=== PATIENT | male | born 1935 | race African-American/Black ===

== ENCOUNTER 2020-07-08 | Observation (INO) | payer MEDICARE ==
[2020-07-08 16:28] VITALS: BP 138/71
--- NOTE | 2020-07-08 16:55 | NUR ---
PER LELO, NURSING STAFF ASKED TO OBTAIN MED LIST JESSIKA, PHARMACY WILL VERIFY ORDERS ONCE MED LIST OBTAINED/ENTERED
--- NOTE | 2020-07-08 17:00 | NUR ---
PT ARRIVED TO THE FLOOR VIA STREACHER AND TRANSPORT. AXOX3, DENIES PAIN. TELE PLACED ON THE PT. INTO BED WITH ASST OF TWO. ORIENTED TO THE ROOM THE BED , CALL LIGHT TV AND TELEPHONE. VS 138/71 86PL 97.4 TEMP AND 95% ON RA. TELE IS READING A-FIB WITH PVC,S IN THE 90,S. ASSESSMENT COMPLETE. FALL BAND AND ALLERGIE BAND APPLIED. REPOSITIONED FOR COMFORT, SIDE RAILS UP CALL LIGHT IN REACH, BED LOCKED IN LOW POSITION. ALL SAFTY MEASURES IN PLACE. WILL CONTINUE TO MONIOTR THE PATIENT.
[2020-07-08] MEDS ORDERED: AMARYL1 M1 PO (17:01)
[2020-07-08] MEDS ORDERED: METFORMIN500 M2 PO (17:02)
[2020-07-08] MEDS ORDERED: ISOSORB MONO60 M1 PO (17:03)
[2020-07-08] MEDS ORDERED: PRADAXA150 M1 PO (17:04)
[2020-07-08] MEDS ORDERED: METOPROL TAR25 MG PO (17:05)
[2020-07-08] MEDS ORDERED: HYDROCHLOROT12.5 MG PO (17:06)
[2020-07-08] MEDS ORDERED: COZAAR100 MG PO (17:07)
[2020-07-08] MEDS ORDERED: SIMVASTATIN40 MG PO (17:07)
[2020-07-08] MEDS ORDERED: NITROSTAT0.4 MG SL (17:08)
[2020-07-08] MEDS ORDERED: [UNRECOGNIZED DRUG - OTHER] OU (17:09)
[2020-07-08] MEDS ORDERED: ACETYL SALICYLIC ACI PO (17:12)
[2020-07-08] MEDS ORDERED: FOLIC ACI1 PO (17:12)
[2020-07-08] MEDS ORDERED: VITAMIN B PO (17:13)
[2020-07-08] MEDS ORDERED: PROSCAR5 MG PO (17:14)
[2020-07-08] MEDS ORDERED: MULTIVITAMI9 PO (17:14)
[2020-07-08] MEDS ORDERED: BETIMOL0.5 % OU (17:15)
[2020-07-08] MEDS ORDERED: FISH OIL1000 M2 PO (17:16)
[2020-07-08] MEDS ORDERED: PEG 3350 PO (17:17)
[2020-07-08 18:40] VITALS: BP 119/77
--- NOTE | 2020-07-08 18:45 | NUR ---
PT VOIDING CLEAR YELLOW URINE .
--- NOTE | 2020-07-08 20:03 | NUR ---
PHYSICAL ASSESMENT COMPLETE. PT CURRENTLY DENIES PAIN OR DISCOMFORT. SCHEDULED MEDICATIONS AND PRN MEDICATION ADMINISTERED, SEE E-MAR. PT DENIES ANY NEEDS AT THIS TIME. PLAN OF CARE REVIEWED, PT DENIES QUESTIONS, VERBALIZES UNDERSTANDING. ITEMS WITHIN REACH, BED LOCKED IN LOW POSITION W/ BEDRAILS UP X2. CALL HOLLOWAY WITHIN REACH, AGREES TO CALL PRN.
--- NOTE | 2020-07-09 00:03 | NUR ---
PT LAYING IN BED WITH EYES CLOSED, APPEARS TO BE SLEEPING, APPEARS COMFORTABLE AND IN NO DISTRESS. RESPIRATIONS REGULAR AND UNLABORED. ITEMS REMAIN WITHIN REACH, CALL HOLLOWAY REMAINS WITHIN REACH. BED REMAINS LOCKED AND IN LOW POSITION WITH BEDRAILS UP X2. WILL CONTINUE TO MONITOR.
[2020-07-09 00:08] VITALS: BP 124/82
[2020-07-09 04:16] VITALS: BP 116/71
--- NOTE | 2020-07-09 04:16 | NUR ---
PT RESTING IN BED, NO SIGNS OF DISTRESS NOTED, RESP EVEN AND UNLABORED. PT VOICES NO NEEDS OR COMPLAINTS AT THIS TIME. CALL LIGHT IN REACH, CONTINUE TO MONITOR.
[2020-07-09 06:18] LABS: HEMATOCRIT 38.2 % (39.0-50.0); HEMOGLOBIN 11.6 g/dl (14.0-18.0); IMMATURE GRANULOCYTES 0.2 % (0.0-5.0); MEAN CELL VOLUME 76.9 fL CALC (80.0-100.0); MEAN CORPUSCULAR HGB 23.3 pG CALC (26.0-32.0); MEAN CORPUSCULAR HGB CONC 30.4 g/dL CAL (32.0-36.0); NEUT# 3.59 thou/uL (1.82-7.42); RED BLOOD COUNT 4.97 mill/uL (4.70-6.10); RED CELL DISTRI WIDTH 18.9 % (11.5-15.5)
[2020-07-09 07:02] LABS: ALKALINE PHOSPHATASE 71 u/l (38-126); ANION GAP 12 (6-22 (CALC)); BILIRUBIN, TOTAL 0.6 mg/dL (0.0-1.4); BUN 13 mg/dL (8-23); BUN/CREATININE RATIO 13 (12-20 (CALC)); CALCULATED LDLCHOLESTEROL 43 mg/dL (62-129 (CALC)); CARBON DIOXIDE 27 mmol/l (22-30); CHLORIDE 103 mmol/l (95-108); CHOLESTEROL HDL RATIO 2.1 (<4.4 (CALC)); GFR > 60 ML/MIN (>=60 (CALC)); GFR FOR AFR.AMER. > 60 ML/MIN (>=60 (CALC)); HDL CHOLESTEROL 55 mg/dL (>=40); MAGNESIUM 1.9 mg/dL (1.6-2.3); POTASSIUM 4.2 mmol/l (3.5-5.1); SGOT/AST 81 u/l (19-48); SODIUM 138 mmol/l (137-146); TOTAL CHOLESTEROL 116 mg/dl (0-199); TOTAL PROTEIN 7.3 g/dL (6.3-8.2); TOTAL TRIGLYCERIDES 88 mg/dl (30-149); VLDL CHOLESTROL 18 mg/dl (0-38 (CALC))
--- NOTE | 2020-07-09 07:15 | NUR ---
PATIENT LAYING IN BED AT THIS TIME MILITARY LAWYER DONE SEE INTERVENTIONS. PATIENT STATED THAT HE HAS NOT HAS A BOWEL MOVEMENT AND ASKED FOR SOMETHING. LELO UPTON APRN NOTIFIED AND ORDERS GIVEN. PATIENT DENEIS ANY PAIN OR OTHER NEEDS. PATIENTS LUNG ARAUJO CLEAR AT THIS TIME. TELE ON AND BEING MONITORED BY ED. SIDERAILS ARE UP X 2 CALL LIGHT WITHIN REACH.
[2020-07-09 07:35] VITALS: BP 121/77
--- NOTE | 2020-07-09 10:29 | NUR ---
PT WOULD BENEFIT FROM PT EVALUATION IF MEDICAL AGREES.
[2020-07-09 10:59] VITALS: BP 104/60
--- NOTE | 2020-07-09 11:53 | NUR ---
PATIENT SITTING UP IN BED AT THIS TIME. PATIENT DENEIS ANY NEEDS AT THIS TIME. PATIENT SIDERAILS ARE UP X 2 CALL LIGHT AND PERSONAL ITEMS WITHIN REACH.
[2020-07-09 15:00] VITALS: BP 88/50
--- NOTE | 2020-07-09 16:01 | NUR ---
PATIENT RESTING IN BED AT THIS TIME. PATIENT DENIES ANY NEEDS SIDERAILS ARE UP CALL LIGHT WITHIN REACH AT THIS TIME.
[2020-07-09 19:18] VITALS: BP 106/65
[2020-07-10] VITALS (7 sets, daily range): BP systolic 91–122; BP diastolic 56–75
--- NOTE | 2020-07-10 00:44 | NUR ---
LATE ENTRY FOR 07/09/20 @ 1999 PT DOING WELL AT THIS TIME. HE DENIES PAIN. NO COMPLAINTS VOICED. IV SITE REMAINS TO R WRIST, FLUSHES EASILY. BREATHING IS EVEN AND UNLABORED. DENIES CHEST PAIN. BS 114 AT HS, NO COVERAGE INDICATED. WILL MONITOR.
--- NOTE | 2020-07-10 00:46 | NUR ---
PT RESTING QUIETLY AT THIS TIME. NO COMPLAINTS VOICED. BED IN LOWEST POSITION AND CALL LIGHT WITHIN REACH. WILL MONITOR
--- NOTE | 2020-07-10 04:23 | NUR ---
PT RESTING COMFORTABLY AT THIS TIME. NO COMPLAINTS VOICED. NO REPORTS OF PAIN. BREATHING EVEN AND UNLABORED. DENIERS CHEST PAIN AT THIS TIME. WILL MONITOR
[2020-07-10 06:10] LABS: HEMATOCRIT 41.7 % (39.0-50.0); HEMOGLOBIN 12.3 g/dl (14.0-18.0); MEAN CELL VOLUME 76.7 fL CALC (80.0-100.0); MEAN CORPUSCULAR HGB 22.6 pG CALC (26.0-32.0); MEAN CORPUSCULAR HGB CONC 29.5 g/dL CAL (32.0-36.0); RED BLOOD COUNT 5.44 mill/uL (4.70-6.10); RED CELL DISTRI WIDTH 19.2 % (11.5-15.5)
[2020-07-10 06:34] LABS: ANION GAP 15 (6-22 (CALC)); BUN 14 mg/dL (8-23); BUN/CREATININE RATIO 14 (12-20 (CALC)); CARBON DIOXIDE 25 mmol/l (22-30); CHLORIDE 99 mmol/l (95-108); GFR > 60 ML/MIN (>=60 (CALC)); GFR FOR AFR.AMER. > 60 ML/MIN (>=60 (CALC)); MAGNESIUM 1.9 mg/dL (1.6-2.3); POTASSIUM 3.9 mmol/l (3.5-5.1); SODIUM 136 mmol/l (137-146)
--- NOTE | 2020-07-10 07:48 | NUR ---
PATIENT RESTING IN BED AT THIS TIME MULE TENDER DONE SEE INTERVENTIONS. PATIENT DENIES ANY PAIN AT THIS TIME OR NEEDS. LUNG ARAUJO REMAIN CLEAR IN ALL FOUR FIELD. CALL LIGHT AND PERSONAL ITEMS ARE WITHIN REACH SIDERAILS ARE UP X2 AT THIS TIME
--- NOTE | 2020-07-10 09:05 | NUR ---
PATIENT COMPLAINING OF PAIN IN THE CHEST AT THIS TIME AND STATED THAT HE GOT "INTO HIS PANTS AND TOOK TWO 0.4MG OF SUBLINGUAL NITRO PRIOR TO THIS NURSE COMING INTO THE ROOM. VITAL SIGNS TAKE AT THIS TIME TEMP. 96.7 PULSE 105 RESP. 23 BP 97/57. DR. FUENTES WAS NOTIFIED OF PATIENTS ACTION AND CAME INTO THE ROOM AND ORDERS OBTAIN FOR EKG AND TO HOLD PATIENTS IMDUR AND LASARTAN AT THIS TIME FOR THE 0900 DOSE. PATIENT STATES "I MY HEAD HURTS A LITTLE". PATIENT TELE MONITORED READING IS PACED [address] FUENTES AWARE OF PATIENTS STATUS. PATIENT EDUCATED ON HOW TO USE NITRO SUBLINGUAL CORRECTLY AT THIS TIME. PATIENTS OWN NITRO REMOVED FROM ROOM AND SENT TO PHARMACY.
--- NOTE | 2020-07-10 14:00 | NUR ---
PATIENT RESTING IN BED AT THIS TIME. PATIENT DENIES ANY NEEDS OR PAIN. SIDERAILS ARE UP CALL LIGHT IS WITHIN REACH.
--- NOTE | 2020-07-10 16:25 | NUR ---
PATIENT DENIES ANY NEEDS AT THIS TIME. PATIENT DENIES ANY CHEST PAIN AND STATED "I FEEL PRETTY GOOD". SIDERAILS ARE UP CALL LIGHT AND PERSONAL ITEMS WITHIN REACH.
--- NOTE | 2020-07-10 19:44 | NUR ---
PT IS RESTING IN BED UPON ASSESSMENT. NO COMPLAINTS VOICED. DENIES PAIN, DENIES CHEST PAIN. IV TO R WRIST REMAINS SALINE LOCKED, FLUSHES EASILY. LUNGS CTA. BREATHING EVEN AND UNLABORED. BS X 4 QUADS. SKIN INTACT. PT IS PACED ON TELE. NO EDEMA NOTED. WILL CONTINUE TO MONITOR.
--- NOTE | 2020-07-10 20:41 | NUR ---
BLOOD PRESSURE LOW, 95/66. METOPROLOL HELD. WILL MONITOR
--- NOTE | 2020-07-11 00:09 | NUR ---
PT RESTING QUIETLY IN BED. NO COMPLAINTS VOICED AT THIS TIME. BREATHING IS EEN AND UNLABORED. WILL MONITOR.
[2020-07-11 00:30] VITALS: BP 102/63
[2020-07-11 04:20] VITALS: BP 126/69
--- NOTE | 2020-07-11 04:27 | NUR ---
PT RESTING QUIETLY IN BED WITH EYES CLOSED. BREATHING EVEN AND UNLABORED. NO COMPLAINTS VOICED AT THIS TIME. DENIES PAIN. Q4HR ASSESSMENTS COMPLETED WITH PT. WILL MONITOR.
[2020-07-11 05:31] LABS: HEMATOCRIT 39.8 % (39.0-50.0); HEMOGLOBIN 12.1 g/dl (14.0-18.0); MEAN CORPUSCULAR HGB 23.1 pG CALC (26.0-32.0); MEAN CORPUSCULAR HGB CONC 30.4 g/dL CAL (32.0-36.0); RED BLOOD COUNT 5.24 mill/uL (4.70-6.10); RED CELL DISTRI WIDTH 18.9 % (11.5-15.5)
[2020-07-11 05:44] LABS: ANION GAP 13 (6-22 (CALC)); BUN 13 mg/dL (8-23); BUN/CREATININE RATIO 13 (12-20 (CALC)); CARBON DIOXIDE 27 mmol/l (22-30); CHLORIDE 101 mmol/l (95-108); GFR > 60 ML/MIN (>=60 (CALC)); GFR FOR AFR.AMER. > 60 ML/MIN (>=60 (CALC)); SODIUM 136 mmol/l (137-146)
[2020-07-11 07:05] VITALS: BP 140/72
--- NOTE | 2020-07-11 07:20 | NUR ---
PATIENT RESTING IN BED AT THIS TIME. DENEIS ANY PAIN AT THIS TIME CLINIC SCHEDULER DONE SEE INTERVETIONS AT THIS TIME. LUNG SOUNDS REMAIN CLEAR TELE ON AND BEING MONITORED BY ED SIDERAIL ARE UP CALL LIGHT AND PERSONAL ITEMS NEAR.
--- NOTE | 2020-07-11 09:39 | NUR ---
PATIENT D/C AT THIS TIME. PATIENT VERRBALIZES UNDERSTANDING OF D/C INSTRUCTIONS. PATIENT NITROGLYCERIN RETURN FROM PHARMACY AND GIVEN TO PATIENT. INSTRUCTIONS AND WRITTEN EDUCATION GIVEN ON THE PROPER USE OF NITRO SUBLINGINAL TAB. PATIENT STATES "I UNDERSTAND".
[2020-07-11] MEDS ORDERED: LASIX 40 MG TAB40 MG PO (09:50)
--- NOTE | 2020-07-11 10:54 | NUR ---
Discharge instructions given. Patient verbalizes understanding of same. Discharged in stable condition via Wheelchair to Home with *Other. All belongings sent with pt.
[2020-07-23] MEDS ORDERED: HYDROCHLOROT12.5 MG PO (12:30)
[2020-07-23] MEDS ORDERED: FINASTERIDE5 MG PO (12:30)
[2020-11-28] MEDS ORDERED: POTASSIUM CHLO10 MEQ PO (12:26)
== END 2020-07-11 10:54 | disposition home or self-care (01) ==
PROVIDERS: Nurse Practitioner; ADMIT Internal Medicine
DX: R07.9 Chest pain, unspecified (principal); I11.0 Hypertensive heart disease with heart failure; I50.9 Heart failure, unspecified; I25.119 Atherosclerotic heart disease of native coronary artery with unspecified angina pectoris; E11.9 Type 2 diabetes mellitus without complications; I48.91 Unspecified atrial fibrillation; F41.9 Anxiety disorder, unspecified; E78.5 Hyperlipidemia, unspecified; Z95.5 Presence of coronary angioplasty implant and graft; Z95.0 Presence of cardiac pacemaker; Z87.891 Personal history of nicotine dependence
CPT/HCPCS: G0378; G0379; S0164

== ENCOUNTER 2020-11-05 15:08 | Emergency (ER) | payer MEDICARE ==
[~2020-11-05] VITALS: Ht 180.3 cm; Wt 79.5 kg
[~2020-11-05 15:08] MED LIST: ACETYL SALICYLIC ACI PO; AMARYL1 M1 PO; BETIMOL0.5 % OU; COZAAR100 MG PO; FINASTERIDE5 MG PO; FISH OIL1000 M2 PO; FOLIC ACI1 PO; HYDROCHLOROT12.5 MG PO; ISOSORB MONO60 M1 PO; LASIX 40 MG TAB40 MG PO; METFORMIN500 M2 PO; METOPROL TAR25 MG PO; MULTIVITAMI9 PO; NITROSTAT0.4 MG SL; PEG 3350 PO; PRADAXA150 M1 PO; PROSCAR5 MG PO; SIMVASTATIN40 MG PO; VITAMIN B PO; [UNRECOGNIZED DRUG - OTHER] OU
[2020-11-05 16:19] LABS: IMMATURE GRANULOCYTES 0.2 % (0.0-5.0); MEAN CELL VOLUME 72.6 fL CALC (80.0-100.0); MEAN CORPUSCULAR HGB 21.5 pG CALC (26.0-32.0); MEAN CORPUSCULAR HGB CONC 29.6 g/dL CAL (32.0-36.0); NEUT# 3.82 thou/uL (1.82-7.42); RED BLOOD COUNT 3.68 mill/uL (4.70-6.10)
[2020-11-05 16:20] LABS: URINE BILIRUBIN - DIPSTICK NEGATIVE (NEGATIVE); URINE BLOOD DIPSTICK NEGATIVE (NEGATIVE); URINE COLOR YELLOW; URINE GLUCOSE - DIPSTICK NEGATIVE (NEGATIVE); URINE KETONE NEGATIVE (NEGATIVE); URINE LEUK ESTERASE NEGATIVE (NEGATIVE); URINE PH 6.5 (4.5-8.0); URINE PROTEIN - DIPSTICK NEGATIVE (NEG-TRACE); URINE SPECIFIC GRAVITY 1.015; URINE UROBILINOGEN - DIPSTICK 0.2 E.U./dL (0.2)
[2020-11-05 16:24] LABS: HEMATOCRIT 26.7 % (39.0-50.0); HEMOGLOBIN 7.9 g/dl (14.0-18.0)
[2020-11-05 16:24] LABS: URINE NITRITE - DIPSTICK NEGATIVE (Negative)
[2020-11-05] MEDS ORDERED: FUROSEMIDE20 MG PO (16:24)
[2020-11-05] MEDS ORDERED: PEG 3350 PO (16:29)
[2020-11-05] MEDS ORDERED: LOSARTAN POTASS50 MG PO (16:30)
[2020-11-05 16:31] LABS: ALBUMIN 3.9 g/dL (3.2-5.0); ALKALINE PHOSPHATASE 70 u/l (38-126); BILIRUBIN, TOTAL 0.5 mg/dL (0.0-1.4); BUN 13 mg/dL (8-23); BUN/CREATININE RATIO 14 (12-20 (CALC)); CARBON DIOXIDE 26 mmol/l (22-30); CHLORIDE 98 mmol/l (95-108); CREATININE 0.9 mg/dL (0.7-1.3); GFR > 60 ML/MIN (>=60 (CALC)); GFR FOR AFR.AMER. > 60 ML/MIN (>=60 (CALC)); SGOT/AST 39 u/l (19-48); SODIUM 138 mmol/l (137-146); TOTAL PROTEIN 7.3 g/dL (6.3-8.2)
[2020-11-05] MEDS ORDERED: VITAMIN D32000 UNI2 PO (16:39)
[2020-11-05] MEDS ORDERED: FISH OIL1000 M2 PO (16:39)
[2020-11-05 16:43] LABS: ANION GAP 17 (6-22 (CALC)); POTASSIUM 3.1 mmol/l (3.5-5.1)
[2020-11-05] MEDS ORDERED: CHROMAGEN1 CAP PO (19:44)
[2020-11-05 19:49] VITALS: BP 135/67
[2020-11-28] MEDS ORDERED: POTASSIUM CHLO10 MEQ PO (12:26)
== END 2020-11-05 20:10 | disposition home or self-care (01) ==
LOC: ED 15:08
PROVIDERS: Emergency Medicine
DX: D64.9 Anemia, unspecified (principal); E11.9 Type 2 diabetes mellitus without complications; I48.91 Unspecified atrial fibrillation; I25.119 Atherosclerotic heart disease of native coronary artery with unspecified angina pectoris; Z96.641 Presence of right artificial hip joint

== ENCOUNTER 2020-11-08 16:53 | Observation (INO) | payer MEDICARE ==
[2020-11-08] VITALS (7 sets, daily range): BP systolic 107–132; BP diastolic 52–69
[~2020-11-08] VITALS: Ht 180.3 cm; Wt 75.0 kg
[~2020-11-08 16:53] MED LIST changes: +CHROMAGEN1 CAP PO; +FUROSEMIDE20 MG PO; +LOSARTAN POTASS50 MG PO; +VITAMIN D32000 UNI2 PO
[2020-11-08 17:54] LABS: HEMATOCRIT 27.3 % (39.0-50.0); HEMOGLOBIN 7.9 g/dl (14.0-18.0); IMMATURE GRANULOCYTES 0.2 % (0.0-5.0); MEAN CELL VOLUME 73.8 fL CALC (80.0-100.0); MEAN CORPUSCULAR HGB 21.4 pG CALC (26.0-32.0); MEAN CORPUSCULAR HGB CONC 28.9 g/dL CAL (32.0-36.0); NEUT# 3.73 thou/uL (1.82-7.42); RED BLOOD COUNT 3.7 mill/uL (4.70-6.10); RED CELL DISTRI WIDTH 20.3 % (11.5-15.5)
[2020-11-08 18:05] LABS: ALBUMIN 3.8 g/dL (3.2-5.0); ALKALINE PHOSPHATASE 71 u/l (38-126); AMYLASE 61 u/l (30-110); ANION GAP 16 (6-22 (CALC)); BILIRUBIN, TOTAL 0.6 mg/dL (0.0-1.4); BUN 11 mg/dL (8-23); BUN/CREATININE RATIO 13 (12-20 (CALC)); CARBON DIOXIDE 24 mmol/l (22-30); CHLORIDE 100 mmol/l (95-108); CREATININE 0.9 mg/dL (0.7-1.3); GFR > 60 ML/MIN (>=60 (CALC)); GFR FOR AFR.AMER. > 60 ML/MIN (>=60 (CALC)); LIPASE 402 u/l (23-300); MAGNESIUM 1.6 mg/dL (1.6-2.3); SGOT/AST 31 u/l (19-48); SODIUM 136 mmol/l (137-146); TOTAL PROTEIN 7.1 g/dL (6.3-8.2)
[2020-11-08 18:17] LABS: ACT PARTIAL THROMBO TIME 58.3 SECONDS (20.0-32.5); INTERNATIONAL NORMALIZED RATIO 1.9 RATIO (0.7-1.3); PROTHROMBIN TIME 19.5 SECONDS (9.0-12.5)
[2020-11-08 18:32] LABS: POTASSIUM 3.8 mmol/l (3.5-5.1)
[2020-11-09 03:47] VITALS: BP 134/74
[2020-11-09 06:23] LABS: IMMATURE GRANULOCYTES 0.3 % (0.0-5.0); MEAN CELL VOLUME 74.9 fL CALC (80.0-100.0); MEAN CORPUSCULAR HGB CONC 29.3 g/dL CAL (32.0-36.0); NEUT# 5.51 thou/uL (1.82-7.42); RED BLOOD COUNT 4.55 mill/uL (4.70-6.10); RED CELL DISTRI WIDTH 20.5 % (11.5-15.5)
[2020-11-09 06:25] LABS: HEMATOCRIT 34.1 % (39.0-50.0)
[2020-11-09 06:41] LABS: ALBUMIN 4.1 g/dL (3.2-5.0); ALKALINE PHOSPHATASE 104 u/l (38-126); ANION GAP 16 (6-22 (CALC)); BUN 11 mg/dL (8-23); BUN/CREATININE RATIO 13 (12-20 (CALC)); CARBON DIOXIDE 24 mmol/l (22-30); CHLORIDE 101 mmol/l (95-108); CREATININE 0.8 mg/dL (0.7-1.3); GFR > 60 ML/MIN (>=60 (CALC)); GFR FOR AFR.AMER. > 60 ML/MIN (>=60 (CALC)); MAGNESIUM 1.6 mg/dL (1.6-2.3); POTASSIUM 4.1 mmol/l (3.5-5.1); SODIUM 137 mmol/l (137-146); TOTAL PROTEIN 7.4 g/dL (6.3-8.2)
[2020-11-09 06:45] LABS: BILIRUBIN, TOTAL 1.2 mg/dL (0.0-1.4); SGOT/AST 81 u/l (19-48)
[2020-11-09 07:30] VITALS: BP 130/68
[2020-11-09 15:20] VITALS: BP 136/75
[2020-11-09 19:29] VITALS: BP 110/54
[2020-11-10] VITALS: BP 115/60
[2020-11-10 03:44] VITALS: BP 118/70
[2020-11-10 05:41] LABS: HEMATOCRIT 31.4 % (39.0-50.0); HEMOGLOBIN 9.4 g/dl (14.0-18.0); MEAN CELL VOLUME 73.5 fL CALC (80.0-100.0); MEAN CORPUSCULAR HGB CONC 29.9 g/dL CAL (32.0-36.0); RED BLOOD COUNT 4.27 mill/uL (4.70-6.10); RED CELL DISTRI WIDTH 20.8 % (11.5-15.5)
[2020-11-10 05:59] LABS: ALBUMIN 3.3 g/dL (3.2-5.0); ALKALINE PHOSPHATASE 77 u/l (38-126); ANION GAP 13 (6-22 (CALC)); BILIRUBIN, TOTAL 0.8 mg/dL (0.0-1.4); BUN 9 mg/dL (8-23); BUN/CREATININE RATIO 11 (12-20 (CALC)); CARBON DIOXIDE 24 mmol/l (22-30); CHLORIDE 102 mmol/l (95-108); CREATININE 0.8 mg/dL (0.7-1.3); GFR > 60 ML/MIN (>=60 (CALC)); GFR FOR AFR.AMER. > 60 ML/MIN (>=60 (CALC)); SGOT/AST 27 u/l (19-48); SODIUM 136 mmol/l (137-146); TOTAL PROTEIN 6.4 g/dL (6.3-8.2)
[2020-11-10 06:08] LABS: POTASSIUM 3.2 mmol/l (3.5-5.1)
[2020-11-10 07:07] VITALS: BP 126/55
[2020-11-10 11:17] VITALS: BP 112/59
[2020-11-10] MEDS ORDERED: NEURONTIN100 MG PO (13:32)
[2020-11-10] MEDS ORDERED: OXY1 (13:36)
[2020-11-10 15:36] VITALS: BP 102/51
[2020-11-28] MEDS ORDERED: POTASSIUM CHLO10 MEQ PO (12:26)
== END 2020-11-10 18:12 | disposition home health service (06) ==
LOC: ED 16:53 → ED-I 18:24 → ED 18:48 → MS2 18:49
PROVIDERS: Nurse Practitioner Family; ADMIT Internal Medicine; ATTEND Internal Medicine
PROC: 30233N1 Transfusion of Nonautologous Red Blood Cells into Peripheral Vein, Percutaneous Approach (ICD-10-PCS; principal; 2020-11-08)
DX: R07.9 Chest pain, unspecified (principal); D64.9 Anemia, unspecified; I48.91 Unspecified atrial fibrillation; I13.0 Hypertensive heart and chronic kidney disease with heart failure and stage 1 through stage 4 chronic kidney disease, or unspecified chronic kidney disease; I50.9 Heart failure, unspecified; E11.22 Type 2 diabetes mellitus with diabetic chronic kidney disease; N18.9 Chronic kidney disease, unspecified; E11.42 Type 2 diabetes mellitus with diabetic polyneuropathy; R09.02 Hypoxemia; I25.119 Atherosclerotic heart disease of native coronary artery with unspecified angina pectoris; E78.5 Hyperlipidemia, unspecified; G47.00 Insomnia, unspecified; F41.9 Anxiety disorder, unspecified; N40.0 Benign prostatic hyperplasia without lower urinary tract symptoms; Z96.641 Presence of right artificial hip joint; Z87.891 Personal history of nicotine dependence; Z95.5 Presence of coronary angioplasty implant and graft; Z95.0 Presence of cardiac pacemaker; Z79.84 Long term (current) use of oral hypoglycemic drugs; Z20.822 Contact with and (suspected) exposure to COVID-19
CPT/HCPCS: G0378; P9016

== ENCOUNTER 2020-11-14 11:15 | Emergency (ER) | payer MEDICARE ==
[~2020-11-14 11:15] MED LIST changes: +NEURONTIN100 MG PO; +OXY1
[2020-11-14 13:34] LABS: HEMATOCRIT 34.2 % (39.0-50.0); HEMOGLOBIN 9.9 g/dl (14.0-18.0); IMMATURE GRANULOCYTES 0.2 % (0.0-5.0); MEAN CORPUSCULAR HGB CONC 28.9 g/dL CAL (32.0-36.0); NEUT# 3.64 thou/uL (1.82-7.42); RED BLOOD COUNT 4.3 mill/uL (4.70-6.10); RED CELL DISTRI WIDTH 25.1 % (11.5-15.5)
[2020-11-14 13:38] LABS: MEAN CELL VOLUME 79.5 fL CALC (80.0-100.0)
[2020-11-14 13:41] LABS: ALBUMIN 3.8 g/dL (3.2-5.0); ALKALINE PHOSPHATASE 75 u/l (38-126); ANION GAP 14 (6-22 (CALC)); BILIRUBIN, TOTAL 0.7 mg/dL (0.0-1.4); BUN 12 mg/dL (8-23); BUN/CREATININE RATIO 12 (12-20 (CALC)); CARBON DIOXIDE 25 mmol/l (22-30); CHLORIDE 103 mmol/l (95-108); GFR > 60 ML/MIN (>=60 (CALC)); GFR FOR AFR.AMER. > 60 ML/MIN (>=60 (CALC)); LIPASE 202 u/l (23-300); SGOT/AST 36 u/l (19-48); SODIUM 138 mmol/l (137-146); TOTAL PROTEIN 7.4 g/dL (6.3-8.2)
[2020-11-14 13:51] LABS: POTASSIUM 4.4 mmol/l (3.5-5.1)
[2020-11-14 14:00] LABS: ACT PARTIAL THROMBO TIME 54.2 SECONDS (20.0-32.5); INTERNATIONAL NORMALIZED RATIO 1.7 RATIO (0.7-1.3); PROTHROMBIN TIME 17.3 SECONDS (9.0-12.5)
[2020-11-14] MEDS ORDERED: AZITHROMYCIN500 MG PO (16:11)
[2020-11-14 16:30] VITALS: BP 116/56
[2020-11-28] MEDS ORDERED: POTASSIUM CHLO10 MEQ PO (12:26)
== END 2020-11-14 16:30 | disposition home or self-care (01) ==
LOC: ED 11:15
DX: K40.90 Unilateral inguinal hernia, without obstruction or gangrene, not specified as recurrent (principal); S00.412A Abrasion of left ear, initial encounter; E11.22 Type 2 diabetes mellitus with diabetic chronic kidney disease; N18.9 Chronic kidney disease, unspecified; I48.91 Unspecified atrial fibrillation; I25.119 Atherosclerotic heart disease of native coronary artery with unspecified angina pectoris; X58.XXXA Exposure to other specified factors, initial encounter; Z79.84 Long term (current) use of oral hypoglycemic drugs; Z20.822 Contact with and (suspected) exposure to COVID-19; D50.9 Iron deficiency anemia, unspecified; N18.2 Chronic kidney disease, stage 2 (mild)
CPT/HCPCS: Q0138

== ENCOUNTER 2020-12-02 08:23 | Day surgery (SDC) | payer MEDICARE ==
[~2020-12-02 08:23] MED LIST changes: +AZITHROMYCIN500 MG PO; +POTASSIUM CHLO10 MEQ PO
[2020-12-02] MEDS ORDERED: TRAMADOL HCL50 MG PO (11:01)
[2020-12-02 12:35] VITALS: BP 126/60
[2020-12-03] MEDS ORDERED: TAMSULOSIN0.4 MG PO (11:35)
== END 2020-12-02 13:26 | disposition home or self-care (01) ==
LOC: ORM 08:23
PROVIDERS: ATTEND Surgery
PROC: 0YU60JZ Supplement Left Inguinal Region with Synthetic Substitute, Open Approach (ICD-10-PCS; principal; 2020-12-02)
DX: K40.90 Unilateral inguinal hernia, without obstruction or gangrene, not specified as recurrent (principal); D17.6 Benign lipomatous neoplasm of spermatic cord; Z85.46 Personal history of malignant neoplasm of prostate; Z95.1 Presence of aortocoronary bypass graft; Z95.5 Presence of coronary angioplasty implant and graft; Z95.810 Presence of automatic (implantable) cardiac defibrillator
CPT/HCPCS: C9290; J0131

== ENCOUNTER 2020-12-03 09:59 | Emergency (ER) | payer MEDICARE ==
[~2020-12-03] VITALS: Ht 180.3 cm; Wt 75.0 kg
[~2020-12-03 09:59] MED LIST changes: +TRAMADOL HCL50 MG PO
[2020-12-03] MEDS ORDERED: TAMSULOSIN0.4 MG PO (11:35)
[2020-12-03 11:46] VITALS: BP 135/64
== END 2020-12-03 11:56 | disposition home or self-care (01) ==
LOC: ED 09:59
PROC: 0T9B70Z Drainage of Bladder with Drainage Device, Via Natural or Artificial Opening (ICD-10-PCS; principal; 2020-12-03)
DX: R33.9 Retention of urine, unspecified (principal); Z95.1 Presence of aortocoronary bypass graft; Z95.5 Presence of coronary angioplasty implant and graft; Z95.810 Presence of automatic (implantable) cardiac defibrillator; Z85.46 Personal history of malignant neoplasm of prostate; Z98.890 Other specified postprocedural states

== ENCOUNTER 2021-06-23 22:50 | Observation (INO) | payer MEDICARE ==
[~2021-06-23] VITALS: Ht 180.3 cm; Wt 77.3 kg
[~2021-06-23 22:50] MED LIST changes: +TAMSULOSIN0.4 MG PO
[2021-06-24 04:00] VITALS: BP 143/64
--- NOTE | 2021-06-24 04:25 | NUR ---
NO EVENTS OVERNIGHT NO C/O CHEST PAIN. VSS
[2021-06-24 06:05] LABS: MEAN CORPUSCULAR HGB 30.7 pG CALC (26.0-32.0); MEAN CORPUSCULAR HGB CONC 32.3 g/dL CAL (32.0-36.0); RED BLOOD COUNT 5.08 mill/uL (4.70-6.10); RED CELL DISTRI WIDTH 14.3 % (11.5-15.5)
[2021-06-24 06:07] LABS: HEMATOCRIT 48.3 % (39.0-50.0); HEMOGLOBIN 15.6 g/dl (14.0-18.0); MEAN CELL VOLUME 95.1 fL CALC (80.0-100.0)
[2021-06-24 06:31] LABS: ANION GAP 14 (6-22 (CALC)); BUN 17 mg/dL (8-23); BUN/CREATININE RATIO 20 (12-20 (CALC)); CALCULATED LDLCHOLESTEROL 64 mg/dL (62-129 (CALC)); CARBON DIOXIDE 26 mmol/l (22-30); CHLORIDE 105 mmol/l (95-108); CHOLESTEROL HDL RATIO 2.5 (<4.4 (CALC)); CREATININE 0.9 mg/dL (0.7-1.3); GFR > 60 ML/MIN (>=60 (CALC)); GFR FOR AFR.AMER. > 60 ML/MIN (>=60 (CALC)); HDL CHOLESTEROL 54 mg/dL (>=40); MAGNESIUM 1.9 mg/dL (1.6-2.3); POTASSIUM 4.9 mmol/l (3.5-5.1); SODIUM 139 mmol/l (137-146); TOTAL CHOLESTEROL 133 mg/dl (0-199); TOTAL TRIGLYCERIDES 80 mg/dl (30-149); VLDL CHOLESTROL 16 mg/dl (0-38 (CALC))
--- NOTE | 2021-06-24 07:00 | NUR ---
RECEIVE REPORT FROM RENETTA FLOREZ.
[2021-06-24 08:00] VITALS: BP 151/66
[2021-06-24 08:18] VITALS: BP 151/66
--- NOTE | 2021-06-24 08:59 | NUR ---
PATIENT STABLE. ALERT AND ORIENTED X3. GOOD RESPIRATORY RATE AT THIS TIME. NOT REFER PAIN OR DISCONFORT. EDUCATES PATIENT ABOUT MEDICATIONS AND NURSING PLAN FOR TODAY. PATIENT REFER UNDERSTAND.
== END 2021-06-24 14:42 | disposition home or self-care (01) ==
LOC: MS2 22:50
PROVIDERS: ADMIT Hospitalist; ATTEND Hospitalist
DX: R07.89 Other chest pain (principal); I25.118 Atherosclerotic heart disease of native coronary artery with other forms of angina pectoris; I10 Essential (primary) hypertension; I48.0 Paroxysmal atrial fibrillation; E11.40 Type 2 diabetes mellitus with diabetic neuropathy, unspecified; E11.51 Type 2 diabetes mellitus with diabetic peripheral angiopathy without gangrene; E78.5 Hyperlipidemia, unspecified; G47.30 Sleep apnea, unspecified; F41.9 Anxiety disorder, unspecified; N40.0 Benign prostatic hyperplasia without lower urinary tract symptoms; F17.200 Nicotine dependence, unspecified, uncomplicated; Z95.1 Presence of aortocoronary bypass graft; Z79.84 Long term (current) use of oral hypoglycemic drugs; Z95.810 Presence of automatic (implantable) cardiac defibrillator; Z79.02 Long term (current) use of antithrombotics/antiplatelets; Z95.5 Presence of coronary angioplasty implant and graft
CPT/HCPCS: G0378; G0379